=== PATIENT | female | born 1985 | race Caucasian/White ===

== ENCOUNTER 2023-01-04 10:43 | Outpatient (CLI) | payer OTHER, SELFPAY ==
--- NOTE | 2023-01-04 11:00 | CRLHL7_ITS ---
For Patients: As a result of the Century Cures Act, medical imaging exams and procedure reports are released immediately into your electronic medical record. You may view this report before your referring provider. If you have questions, please contact your health care provider. Indication: Enlarged Lymph node Technique: Grayscale and color Doppler ultrasound of the right submandibular space performed. Comparison: None Findings: Mildly prominent lymph node in the submandibular region is present measuring 1.6 x 0.7 x 1.2 cm. Normal fatty hilum noted with normal internal vascularity. The hypoechoic cortex is normal. Impression: Mildly reactive right submandibular lymph node. Dictated by Willi Howard MD @ 01/04/2023 12:53:00 PM (Electronically Signed)
== END 2023-01-04 10:44 | disposition home or self-care (01) ==
PROVIDERS: PCP Nurse Practitioner Family; Visit Provider Nurse Practitioner Family
DX: R59.1 Generalized enlarged lymph nodes (principal)
CPT/HCPCS: 76536